=== PATIENT | female | born 1990 | race Caucasian/White ===

== ENCOUNTER 2017-07-07 11:37 | Emergency (ER) | payer SELFPAY | END 2017-07-07 12:00 | disposition left against medical advice (07) | DX: Z53.21 Procedure and treatment not carried out due to patient leaving prior to being seen by health care provider (principal) ==

== ENCOUNTER 2017-09-13 14:00 | Emergency (ER) | payer SELFPAY | END 2017-09-13 14:35 | disposition left against medical advice (07) | DX: Z53.21 Procedure and treatment not carried out due to patient leaving prior to being seen by health care provider (principal) ==